=== PATIENT | male | born 1955 | race Caucasian/White ===

== ENCOUNTER 2022-12-23 05:46 | Emergency (ER) | payer MEDICARE ==
[2022-12-23 06:32] LABS: BASOPHILS % (AUTO) 0.9 %; EOSINOPHILS # (AUTO) 0.2 10^3/uL (0.0-0.7); EOSINOPHILS % (AUTO) 4.6 %; HCT - HEMATOCRIT 39.5 % (42.0-52.0); LYMPHOCYTES # (AUTO) 1.1 10^3/uL (1.5-3.5); LYMPHOCYTES % (AUTO) 23.8 %; MEAN CORPUSCULAR HEMOGLOBIN 31.3 pg (27.0-31.0); MEAN CORPUSCULAR HGB CONC 32.9 g/dL (32.0-36.0); MEAN PLATELET VOLUME 9.6 fL (7.4-11.4); MONOCYTES # (AUTO) 0.5 10^3/uL (0.0-1.0); MONOCYTES % (AUTO) 11.5 %; NEUTROPHILS # (AUTO) 2.7 10^3/uL (1.5-6.6); NEUTROPHILS % (AUTO) 59.2 %; PLT - PLATELET COUNT 232 10^3/uL (130-450); RED BLOOD COUNT 4.16 10^6/uL (4.70-6.10); RED CELL DISTRIBUTION WIDTH 13.3 % (12.0-15.0); WHITE BLOOD COUNT 4.5 x10^3/uL (4.8-10.8)
[2022-12-23 06:46] LABS: ALBUMIN/GLOBULIN RATIO 1.3 (1.0-2.2); BILIRUBIN,TOTAL 0.5 mg/dL (0.2-1.0); CALCIUM 8.9 mg/dL (8.5-10.3); CREATININE 1.5 mg/dL (0.6-1.2); POTASSIUM 3.7 mmol/L (3.5-5.0)
--- NOTE | 2022-12-23 06:50 | ED Physician Documentation ---
History of Present Illness - Stated complaint Stated Complaint: CHEST PX - Chief complaint Chief Complaint: Cardiac - History obtained from History obtained from: Patient - Additonal information Additional information: 67-year-old man with family history of MT and the mother at 62, non-smoker, no history of diabetes, high blood pressure, or hyperlipidemia, presents with chest pressure at 2 AM waking him from sleep, Without pain per se. Patient also states he had a cough 2 nights ago but that resolved yesterday. Denies fever, hemoptysis, leg swelling, shortness of breath, dizziness, nausea, diaphoresis. Review of Systems Constitutional: denies: Fever Cardiac: reports: Chest pain / pressure. denies: Palpitations Respiratory: denies: Dyspnea, Cough PD PAST MEDICAL HISTORY - Allergies Allergies/Adverse Reactions: Allergies Allergy/AdvReac Type Severity Reaction Status Date / Time latex Allergy Unknown Verified 12/23/22 06:15 Penicillins Allergy Unknown Verified 12/23/22 06:15 PD ED PE NORMAL - Vitals Vital signs reviewed: Yes - General General: Alert and oriented X 3, No acute distress, Well developed/nourished - HEENT HEENT: Atraumatic, PERRL, EOMI - Neck Neck: Supple, no meningeal sign - Cardiac Cardiac: RRR - Respiratory Respiratory: No respiratory distress, Clear bilaterally - Abdomen Abdomen: Non tender, Non distended - Derm Derm: Normal color, Warm and dry - Extremities Extremities: No deformity - Neuro Neuro: Alert and oriented X 3 - Psych Psych: Normal mood, Normal affect Results - Vitals Vitals: Vital Signs - 24 hr 12/23/22 12/23/22 12/23/22 06:00 06:10 06:30 Temperature 36.5 C Heart Rate 65 61 59 L Respiratory 15 17 14 Rate Blood Pressure 118/82 H 120/71 118/92 H O2 Saturation 100 100 100 Oxygen O2 Source Room air - EKG (time done) 0555 EKG releavant findings:: EKG personally interpreted by author of this note. Relevant findings are: Rate: Rate (enter#) (62) Rhythm: NSR [place]: Normal Intervals: Normal [place] QRS: Normal Ischemia: Normal ST segments - Labs Labs: Laboratory Tests 12/23/22 12/23/22 06:30 06:30 WBC 4.5 L RBC 4.16 L Hgb 13.0 L Hct 39.5 L MCV 95.0 H MCH 31.3 H MCHC 32.9 RDW 13.3 Plt Count 232 MPV 9.6 Neut # (Auto) 2.7 Lymph # (Auto) 1.1 L [place] # (Auto) 0.5 Eos # (Auto) 0.2 Baso # (Auto) 0.0 Absolute Nucleated RBC 0.00 Nucleated RBC % 0.0 Sodium 133 L Potassium 3.7 Chloride 96 L Carbon Dioxide 30 Anion Gap 7.0 BUN 24 H Creatinine 1.5 H Estimated GFR (MDRD) 46 L Glucose 95 Calcium 8.9 Total Bilirubin 0.5 AST 20 ALT 15 Alkaline Phosphatase 45 Total Protein 7.0 Albumin 4.0 Globulin 3.0 Albumin/Globulin Ratio 1.3 Lipase 51 PD Medical Decision Making - ED course ED course: 67-year-old man presents with chest pressure starting at 2 AM waking him from sleep. CBC, abdominal panel, troponin, EKG, chest x-ray ordered. 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 advised him to f/u with pcp in regards to this. Doubt MT given symptoms started 5 hours ago and the high sensitivity troponin is negative. PE unlikely given HR<100, no leg swelling, no hemoptysis, no recent surgery or trauma, no prior PE or DVT, and not on steroids. Outpatient follow-up recommended. Return precautions given. Departure - Departure Disposition: 01 Home, Self Care Clinical Impression: Chest pain Condition: Stable Instructions: ED Chest Pain NonCardiac Comments: You are seen in the emergency department for chest pressure and had normal work- up on lab work, EKG and chest x-ray. Please follow-up with your primary care provider and return to the emergency department for new or worsening symptoms or other concerns.You did have mildly elevated creatinine which is a test for your kidney function and you have some really mild anemia. Please ask your doctor to repeat your lab work.
[2022-12-23 06:52] VITALS: BP 118/92
--- NOTE | 2022-12-23 07:37 | XRAY Report ---
PROCEDURE: Chest 1 View X-Ray INDICATIONS: Chest Pain TECHNIQUE: One view of the chest was acquired. COMPARISON: None. FINDINGS: Surgical changes and devices: None. Lungs and pleura: No pleural effusions or pneumothorax. Lungs are clear. Mediastinum: Mediastinal contours appear normal. Heart size is normal. Bones and chest wall: No suspicious bony lesions. Overlying soft tissues appear unremarkable. IMPRESSION: No acute cardiopulmonary process. Findings are concordant with preliminary interpretation provided by [facility]. Reviewed by: George Min MD on 12/23/2022 7:35 AM PDT Approved by: George Min MD on 12/23/2022 7:35 AM PDT Station ID: [id number]
== END 2022-12-23 07:13 | disposition home or self-care (01) ==
LOC: ED 05:46
DX: R07.89 Other chest pain (principal); I25.2 Old myocardial infarction
CPT/HCPCS: 36415; 80053; 83690; 84484; 85025; 93005; 99283; 99284